=== PATIENT | male | born 1955 | race Caucasian/White ===

== ENCOUNTER 2019-02-22 21:04 | Emergency (ER) | payer MEDICAID ==
[~2019-02-22] VITALS: Ht 165.1 cm; Wt 104.9 kg
[2019-02-22 21:07] VITALS: Ht 165.1 cm; Wt 104.9 kg
[2019-02-22] MEDS ORDERED: SOD CHLORIDE 0.9% 500 ML IV STA (21:36)
[2019-02-22] MEDS ORDERED: HYDROmorphONE 1 MG/ML SYG IV STA (21:36)
[2019-02-22] MEDS ORDERED: ONDANSETRON 4 MG INJ IV STA (21:36)
--- NOTE | 2019-02-22 21:36 | ERD ---
ER Documentation Chief Complaint Chief Complaint R flank pain today HPI 64-year-old male with no prior medical history presents to the ED complaining of acute onset of severe, sharp right flank pain radiating to his right lower clara drant which began several hours ago while driving. No relieving or exacerbating factors. ROS All systems reviewed and are negative except as per history of present illness. Allergies Allergies: Coded Allergies: No Known Allergy (Unverified , 02/22/19) Physical Exam Vitals Vital Signs Date Temp Pulse Resp B/P (MAP) Pulse Ox O2 O2 Flow FiO2 Time Delivery Rate 02/22/19 54 16 150/81 96 Room Air 23:30 (104) 02/22/19 60 18 182/83 98 Room Air 21:20 (116) 02/22/19 97.8 51 18 187/84 95 21:07 (118) Physical Exam Const: Severe distress due to pain. Head: Atraumatic Eyes: Normal Conjunctiva ENT: Normal External Ears, Nose and Mouth. Neck: Full range of motion. No meningismus. Resp: Clear to auscultation bilaterally Cardio: Regular rate and rhythm, no murmurs Abd: Soft, non tender, non distended. Normal bowel sounds Skin: No petechiae or rashes Back: No midline or flank tenderness Ext: No cyanosis, or edema Neur: Awake and alert Psych: Normal Mood and Affect Result Diagram: 02/22/19212802/22/192128 Results 24 hrs Laboratory Tests Test 02/22/19 21:29 02/22/19 21:42 White Blood Count 8.0 10^3/ul Red Blood Count 4.79 10^6/ul Hemoglobin 15.2 g/dl Hematocrit 43.6 % Mean Corpuscular Volume 91.0 fl Mean Corpuscular Hemoglobin 31.7 pg Mean Corpuscular Hemoglobin Concent 34.9 g/dl Red Cell Distribution Width 12.4 % Platelet Count 148 10^3/UL Mean Platelet Volume 12.4 fl Immature Granulocytes % 0.300 % Neutrophils % 71.1 % Lymphocytes % 20.9 % Monocytes % 5.3 % Eosinophils % 1.9 % Basophils % 0.5 % Nucleated Red Blood Cells % 0.0 /100WBC Immature Granulocytes # 0.020 10^3/ul Neutrophils # 5.7 10^3/ul Lymphocytes # 1.7 10^3/ul Monocytes # 0.4 10^3/ul Eosinophils # 0.2 10^3/ul Basophils # 0.0 10^3/ul Nucleated Red Blood Cells # 0.0 10^3/ul Urine Color STRAW Urine Clarity CLEAR Urine pH 7.0 Urine Specific [place] 1.013 Urine Ketones NEGATIVE mg/dL Urine Nitrite NEGATIVE mg/dL Urine Bilirubin NEGATIVE mg/dL Urine Urobilinogen NEGATIVE mg/dL Urine Leukocyte Esterase NEGATIVE Isauro/ul Urine Microscopic RBC 6 /HPF Urine Microscopic WBC 1 /HPF Urine Bacteria FEW /HPF Urine Hemoglobin 1+ mg/dL Urine Glucose NEGATIVE mg/dL Urine Total Protein NEGATIVE mg/dl Sodium Level 143 mmol/L Potassium Level 4.1 mmol/L Chloride Level 104 mmol/L Carbon Dioxide Level 26 mmol/L Anion Gap 13 Blood Urea Nitrogen 21 mg/dl Creatinine 1.20 mg/dl Est Glomerular Filtrat Rate mL/min > 60 mL/min Glucose Level 179 mg/dl Calcium Level 9.8 mg/dl Bedside Urine pH (LAB) 7.5 Bedside Urine Protein (LAB) Negative Bedside Urine Glucose (UA) Negative Bedside Urine Ketones (LAB) Negative Bedside Urine Blood 1+ Bedside Urine Nitrite (LAB) Negative Bedside Urine Leukocyte Esterase (L Negative Current Medications Medications Dose Sig/Kendra Start Time Status Last (Trade) Ordered Route PRN Stop Time Admin Dose Reason Admin Sodium 500 ml @ Q1H STAT 02/22/19 DC 02/22/19 Chloride 500 mls/hr IV 21:36 21:41 02/22/19 22:35 1 mg ONCE STAT 02/22/19 DC 02/22/19 Hydromorphone IV 21:36 21:40 HCl 02/22/19 21:38 (Dilaudid) Ondansetron 4 mg ONCE STAT 02/22/19 DC 02/22/19 HCl (Zofran IV 21:36 21:40 Inj) 02/22/19 21:38 1 mg ONCE STAT 02/22/19 DC 02/22/19 Hydromorphone IV 23:05 23:09 HCl 02/22/19 23:06 (Dilaudid) Procedures/MDM DOCUMENTS REVIEWED: ED nurse, [ ] IMAGING: PROCEDURE: CT abdomen and pelvis without contrast. CLINICAL INDICATION: Right flank pain TECHNIQUE: CT scan of the abdomen and pelvis without oral contrast was performed and is reconstructed at 2.5 mm contiguous axial intervals from the dome of the diaphragm to the inferior pubic rami.. The patient was scanned without intravenous contrast. Sagittal and coronal reformatted images were obta ined from the axial source images. The calculated radiation dose measures 1435 mGy centimeters. The CTDI measures 21 mGy. Individualized dose optimization technique was used for the performance of this exam. This included 1. Automated exposure control. 2. Adjustment of the mA and / or kV according to the patient's size. 3. Use of iterative reconstructed technique. DICOM images are available. COMPARISON: None. FINDINGS: The lung bases are clear of any infiltrate or nodule. No effusion is seen. There are calcified nonenlarged left hilar nodes. The liver is of normal size and contour with no mass or ductal dilatation. No gallstones are visualized. No splenic, adrenal or pancreatic abnormalities present. Kidneys are of normal size and contour. No hydronephrosis, calculus or mass Is seen in the left kidney. Noted are less than 3 mm nonobstructing stones in the mid and lower pole of the right kidney. No right renal mass is seen. There is perinephric stranding. There is mild to moderate hydroureter nephrosis on the right with a 4 mm stone at the ureterovesicular junction.. No bladder mass or stone is present. Prostate and seminal vesicles appear normal. There is no aneurysm. No adenopathy is present. No bowel mass or obstruction is present. There is diverticulosis. The appendix is normal. No phlegmon, ascites or pneumoperitoneum is visualized. There is L4-L5 degenerative disc narrowing. IMPRESSION: Right hydroureter nephrosis with 4 mm calculus ureterovesicular junction. Tiny nonobstructing right renal calculi. Diverticulosis. No evidence of diverticulitis or appendicitis. Fatty liver. .Dami Devlin MD, MD Date Time Electronically viewed and signed by .Dami Devlin MD, MD on 02/22/2019 22:11 .A/ REEXAMINATION/REEVALUATION: Time: 22:15. Doing well. Pain decreased. Time: 23:00. Pain recurred. Dilaudid 1 mg IV. Time: 23:50. Doing well. Pain decreased. [employer]KIN-year-old male with no prior medical history presents to the ED complaining of acute onset of severe, sharp right flank pain radiating to his right lower quadrant which began several hours ago while driving. CBC to evaluate for leukocytosis and anemia is unremarkable. Chemistry dense of electrolyte abnormalities, renal insufficiency or hyperglycemia. Urinalysis shows microscopic hematuria but no pyuria or signs of infection. CT the abdomen pelvis without contrast performed to evaluate for an acute intra-abdominal process including abdominal aortic aneurysm, obstructive uropathy, bowel obstruction, appendicitis and diverticulitis reveals 4 mm right distal UVJ stone with mild to moderate hydronephrosis. Patient required multiple dose of intravenous opiates however pain has diminished. No signs of pyelonephritis. Stable for discharge with appropriate analgesics, precautionary instructions and outpatient urology follow-up as counseled. Counseled patient and family regarding diagnostic workup, diagnosis and need for followup. Understands to return to ED if symptoms recur, worsen or any other concerns. Departure Diagnosis: Primary Impression: Acute right flank pain Additional Impressions: Right ureteral calculus Hydronephrosis, right Renal colic Condition: Stable (Improved) KANE MILLER MD Feb 22, 2019 21:36
[2019-02-22] MEDS ORDERED: HYDROmorphONE 2 MG/ML SYG IV STA (23:05)
[2019-02-23] MEDS ORDERED: CEPH-443 PO (00:16)
[2019-02-23] MEDS ORDERED: HYDR-4011 PO (00:16)
[2019-02-23 00:43] VITALS: BP 123/70; PULSE 55; RESP 17
[2019-02-24] MEDS ORDERED: TAMS-14 PO (05:41)
== END 2019-02-23 00:43 | disposition home or self-care (01) ==
LOC: E/R 21:04
DX: N13.30 Unspecified hydronephrosis (principal); N23 Unspecified renal colic; N20.1 Calculus of ureter
CPT/HCPCS: 36415; 74176; 80048; 81001; 85025; 96374; 96375; 96376; J1170; J2405; J7040; Z7502; 81003

== ENCOUNTER 2019-02-24 01:42 | Emergency (ER) | payer MEDICAID ==
[~2019-02-24] VITALS: Ht 165.1 cm; Wt 105.7 kg
[~2019-02-24 01:42] MED LIST: CEPH-443 PO; HYDR-4011 PO
[2019-02-24 01:48] VITALS: Ht 165.1 cm; Wt 105.7 kg
[2019-02-24] MEDS ORDERED: KETOROLAC 15 MG INJ IV STA (02:16)
[2019-02-24] MEDS ORDERED: SOD CHLORIDE 0.9% 1,000 ML IV STA (02:16)
[2019-02-24] MEDS ORDERED: KETAMINE HCL (50 MG/ML) 1ml syringe IV STA (04:16)
[2019-02-24] MEDS ORDERED: ONDANSETRON 4 MG INJ IV STA (04:16)
--- NOTE | 2019-02-24 05:40 | ERD ---
ER Documentation Chief Complaint Chief Complaint burning pain over R flank to R front x 24 hrs;took [place]&Tramadol@2200 HPI This is a 63-year-old male with no significant past medical history aside from being recently diagnosed with kidney stones yesterday, now presenting recurrent sharp aching colicky right-sided flank pain radiating into the right groin. The patient had a CT scan yesterday that revealed a 4 mm kidney stone at the UVJ. The patient was treated with Dilaudid in the emergency department with improvement of his symptoms. He was discharged with prescriptions for Keflex and [place]. The patient does endorse filling the [place] prescription, but the pain recurred this evening despite treatment. The patient endorses nausea but no vomiting. He denies dysuria or hematuria or urgency or frequency. He denies constipation or diarrhea. He denies black or bloody or tarry stools. He denies fever or chills. The patient denies fever or chills. The patient has had no headache or vision changes. The patient does not endorse neck pain. The patient denies lightheadedness or dizziness. The patient has had no chest pain or trouble breathing. The patient has had no focal deficits. The patient has had no weakness or numbness or tingling to the face or extremities. ROS All systems reviewed and are negative except as per history of present illness. Medications Home Meds Active Scripts Cephalexin* (Keflex*) 500 Mg Capsule, 500 MG PO QID for 7 Days, CAP Prov:KANE MILLER MD 02/23/19 Hydrocodone/Acetaminophen ([place] 5-325 Tablet) 1 Each Tablet, 1-2 TAB PO Q6H PRN for PAIN, #12 TAB Prov:KANE MILLER MD 02/23/19 Allergies Allergies: Coded Allergies: No Known Allergy (Unverified , 02/22/19) PMhx/Soc Medical and Surgical Hx: pt denies Medical Hx, pt denies Surgical Hx History of Surgery: No Anesthesia Reaction: No Hx Neurological Disorder: No Hx Respiratory Disorders: No Hx Cardiac Disorders: No Hx Psychiatric Problems: No Hx Miscellaneous Medical Probl: Yes (Kidney stones) Hx Alcohol Use: No Hx Substance Use: No Hx Tobacco Use: No Smoking Status: Never smoker FmHx Family History: No diabetes Physical Exam Vitals Vital Signs Date Temp Pulse Resp B/P (MAP) Pulse Ox O2 O2 Flow FiO2 Time Delivery Rate 02/24/19 55 14 129/68 14 Room Air 04:00 (88) 02/24/19 98.1 56 20 204/88 96 01:48 (126) Physical Exam Const: No acute distress Head: Atraumatic Eyes: Normal Conjunctiva ENT: Normal External Ears, Nose and Mouth. Neck: Full range of motion. No meningismus. Resp: Clear to auscultation bilaterally Cardio: Regular rate and rhythm, no murmurs Abd: Soft, non distended. Tenderness to the right groin. Normal bowel sounds Skin: No petechiae or rashes Back: No midline or flank tenderness Ext: No cyanosis, or edema Neur: Awake and alert Psych: Normal Mood and Affect Result Diagram: 02/24/193 02/24/19 0233 Results 24 hrs Laboratory Tests Test 02/24/19 02:33 White Blood Count 11.0 10^3/ul Red Blood Count 4.59 10^6/ul Hemoglobin 14.9 g/dl Hematocrit 41.6 % Mean Corpuscular Volume 90.6 fl Mean Corpuscular Hemoglobin 32.5 pg Mean Corpuscular Hemoglobin Concent 35.8 g/dl Red Cell Distribution Width 12.5 % Platelet Count 157 10^3/UL Mean Platelet Volume 13.1 fl Immature Granulocytes % 0.400 % Neutrophils % 75.4 % Lymphocytes % 15.6 % Monocytes % 7.5 % Eosinophils % 0.7 % Basophils % 0.4 % Nucleated Red Blood Cells % 0.0 /100WBC Immature Granulocytes # 0.040 10^3/ul Neutrophils # 8.3 10^3/ul Lymphocytes # 1.7 10^3/ul Monocytes # 0.8 10^3/ul Eosinophils # 0.1 10^3/ul Basophils # 0.0 10^3/ul Nucleated Red Blood Cells # 0.0 10^3/ul Urine Color STRAW Urine Clarity CLEAR Urine pH 6.0 Urine Specific [place] 1.014 Urine Ketones NEGATIVE mg/dL Urine Nitrite NEGATIVE mg/dL Urine Bilirubin NEGATIVE mg/dL Urine Urobilinogen NEGATIVE mg/dL Urine Leukocyte Esterase NEGATIVE Isauro/ul Urine Hemoglobin NEGATIVE mg/dL Urine Glucose NEGATIVE mg/dL Urine Total Protein NEGATIVE mg/dl Sodium Level 136 mmol/L Potassium Level 4.5 mmol/L Chloride Level 102 mmol/L Carbon Dioxide Level 23 mmol/L Anion Gap 11 Blood Urea Nitrogen 20 mg/dl Creatinine 1.28 mg/dl Est Glomerular Filtrat Rate mL/min 57 mL/min Glucose Level 155 mg/dl Calcium Level 8.3 mg/dl Total Bilirubin 0.8 mg/dl Direct Bilirubin 0.00 mg/dl Indirect Bilirubin 0.8 mg/dl Aspartate Amino Transf (AST/SGOT) 65 IU/L Alanine Aminotransferase (ALT/SGPT) 94 IU/L Alkaline Phosphatase 76 IU/L Total Protein 7.4 g/dl Albumin 4.0 g/dl Globulin 3.40 g/dl Albumin/Globulin Ratio 1.17 Lipase 83 U/L Current Medications Medications Dose Sig/Kendra Start Time Status Last (Trade) Ordered Route PRN Stop Time Admin Dose Reason Admin Sodium 1,000 ml @ Q1H STAT 02/24/19 DC 02/24/19 Chloride 1,000 mls/hr IV 02:16 02:42 02/24/19 03:15 Ketorolac 15 mg ONCE STAT 02/24/19 DC 02/24/19 Tromethamine IV 02:16 02:41 (Toradol) 02/24/19 02:18 Ondansetron 4 mg ONCE STAT 02/24/19 DC 02/24/19 HCl (Zofran IV 04:16 04:21 Inj) 02/24/19 04:18 Ketamine 32 mg ONCE STAT 02/24/19 DC 02/24/19 HCl IV 04:16 04:23 (Ketamine 02/24/19 04:18 HCl) Procedures/MDM MDM The patient's presentation warrants further investigation. Previous medical records, if available, were reviewed. LABS The patient's laboratory testing was obtained and reviewed. No emergent treatment was required unless described below. CBC: Leukocytosis without shift, likely reactive, low clinical suspicion for a systemic infection. No E/o severe anemia or thrombocytopenia Chemistry: No E/o severe acidosis or alkalosis or liver disease or diabetic ketoacidosis. Slightly elevated creatinine, unchanged from yesterday. Mild transaminitis, likely reactive. Urine: No E/o acute infection or hematuria IMAGING CT Abd/Pelvis from 02/22/2019 FINDINGS: The lung bases are clear of any infiltrate or nodule. No effusion is seen. There are calcified nonenlarged left hilar nodes. The liver is of normal size and contour with no mass or ductal dilatation. No gallstones are visualized. No splenic, adrenal or pancreatic abnormalities present. Kidneys are of normal size and contour. No hydronephrosis, calculus or mass Is seen in the left kidney. Noted are less than 3 mm nonobstructing stones in the mid and lower pole of the right kidney. No right renal mass is seen. There is perinephric stranding. There is mild to moderate hydroureter nephrosis on the r ight with a 4 mm stone at the ureterovesicular junction.. No bladder mass or stone is present. Prostate and seminal vesicles appear normal. There is no aneurysm. No adenopathy is present. No bowel mass or obstruction is present. There is diverticulosis. The appendix is normal. No phlegmon, ascites or pneumoperitoneum is visualized. There is L4-L5 degenerative disc narrowing. IMPRESSION: Right hydroureter nephrosis with 4 mm calculus ureterovesicular junction. Tiny nonobstructing right renal calculi. Diverticulosis. No evidence of diverticulitis or appendicitis. Fatty liver. Electronically viewed and signed by Dami Devlin MD, on 02/22/2019 22:11 TREATMENT/DISPOSITION The patient returns for persistent renal colic. The patient was evaluated fully yesterday, which included a CT scan of the abdomen and pelvis that confirmed the nephrolithiasis. The patient was treated with IV fluids and Toradol in the emergency department today with only some relief. The patient was later treated with low-dose ketamine with significant relief of his pain. In addition to the Keflex and [place] that was prescribed previously, I do also intend to prescribe the patient Flomax. The patient understands the importance of following up with a urologist. The patient's blood work is unchanged at this time. I do not feel that he requires inpatient management at this time. The patient does have a mild leukocytosis without shift. I suspect this to be reactive. He is afebrile. There is no evidence of urinary tract infection today. I have low suspicion for pyelonephritis. That said, the patient has already been given Keflex. He may complete this prescription. The patient does not have any evidence of peritonitis. The patient does not have clinical symptoms concerning for mesenteric ischemia or ischemic colitis. I do not suspect viscus perforation. The patient does not have right upper quadrant tenderness, and I have low suspicion for gallstones, cholecystitis or biliary c olic. The patient does not have any epigastric pain. I have low suspicion for gastritis, PUD or GERD. The patient does not have left upper quadrant tenderness. I have low suspicion for pancreatitis. The patient's pain is currently in the right groin, but the CT scan yesterday did not reveal any e vidence of appendicitis and my suspicion for this etiology is very low. The patient does not have any left lower quadrant tenderness, and I have low suspicion for diverticulosis or diverticulitis. The patient does not have any palpable pulsatile mass or severe abdominal pain radiating to the back. I have low suspicion for aortic aneurysm, dissection or rupture. DISCHARGE Upon reevaluation of the patient, symptoms have improved. No emergent diagnoses were identified. At this time, I feel that the patient stable for discharge. The patient was instructed to follow-up with a primary care physician in 1-3 days. The patient will be given strict precautions with which to return to the emergency department. Prescriptions: Flomax The patient's blood pressure was elevated at greater than 120/80 while in the emergency department. The patient was otherwise stable with no evidence of hypertensive urgency or emergency. The patient does not require admission for blood pressure control. I have discussed with the patient the risks of hypertension. I have instructed the patient to return to the ER for any new or worsening symptoms including chest pain, shortness of breath, headache, blurred vision, confusion, nausea, vomiting or LOC. I have advised the patient to follow up with the primary care physician for outpatient monitoring and treatment for hypertension in 1-3 days. Disclaimer: Inadvertent spelling and grammatical errors are likely due to EHR/dictation software use and do not reflect on the overall quality of patient care. Note that the electronic time recorded on this note does not necessarily reflect the actual time of the patient encounter. Departure Diagnosis: Primary Impression: Renal colic on right side Additional Impressions: Right nephrolithiasis Hydronephrosis Hydronephrosis type: with renal calculous obstruction Qualified Codes: N13.2 - Hydronephrosis with renal and ureteral calculous obstruction Elevated serum creatinine Leukocytosis Leukocytosis type: unspecified Qualified Codes: D72.829 - Elevated white blood cell count, unspecified Transaminitis Condition: Stable Patient Instructions: Hydronephrosis Adult, Kidney Stone W/ Colic Additional Instructions: Thank you for for coming to [facility] for your care today. Please ask your nurse or provider if you have questions about your care today and do not leave until all your questions have been answered. Please use any medications given as directed and follow-up with your doctor (or the doctor you were referred to) in the next 1-3 days. If you do not have a primary care doctor you may follow up at the [facility] or [facility] (listed below). You may also use motrin and tylenol as needed for fever and/or pain unless instructed otherwise by your provider or nurse. Indications for more urgent follow-up have been discussed, but you may return to the Emergency Department at ANY time for any worrisome or worsening symptoms. If you have abdominal pain, please know that no test or exam you received is perfect and you should follow up within 8 hours for continued pain. If you had any imaging studies today, such as an X-Ray or CT Scan, these studies will be reviewed later by a radiologist. You will be called if there are important findings that were not identified today, so make sure the contact information you provided at registration is correct. If you received any narcotic pain control medicine today, such as Vicodin, Morphine or Dilaudid, your coordination and judgment may be affected for a number of hours. Please do not drive or operate heavy machinery, and you may want someone to assist you at home. If you were given a prescription for narcotic medication, be aware that it is very addictive- use sparingly and only if necessary. PLEASE SEEK FURTHER EVALUATION AND MANAGEMENT AT YOUR DOCTORS OFFICE WITHIN THE NEXT 1-3 DAYS. IT IS YOUR RESPONSIBILITY TO MAKE AN APPOINTMENT FOR FOLOW-UP CARE. IF YOU HAVE A PRIMARY DOCTOR, PLEASE CALL THEIR OFFICE TO SCHEDULE AN APPOINTMENT FOR FOLLOW UP. IF YOU DO NOT HAVE A PRIMARY DOCTOR YOU CAN CALL OUR PHYSICIAN REFERRAL HOTLINE AT IF YOU CAN NOT AFFORD TO SEE A PHYSICIAN YOU CAN CHOSE FROM THE FOLLOWING [facility] CLINICS: [facility] [place] [address] [facility] [address] [facility] [address] [facility] [address] [facility] [address] [facility] [facility] [address] TOMMY DAVE MD Feb 24, 2019 05:38
[2019-02-24] MEDS ORDERED: TAMS-14 PO (05:41)
[2019-02-24 05:50] VITALS: BP 126/74; PULSE 53; RESP 14
== END 2019-02-24 05:50 | disposition home or self-care (01) ==
LOC: E/R 01:42
DX: N23 Unspecified renal colic (principal); N13.2 Hydronephrosis with renal and ureteral calculous obstruction; D72.829 Elevated white blood cell count, unspecified; R74.0 Nonspecific elevation of levels of transaminase and lactic acid dehydrogenase [LDH]; R79.89 Other specified abnormal findings of blood chemistry
CPT/HCPCS: 36415; 80053; 81003; 83690; 85025; 96374; 96375; J1885; J2405; J7030; Z7502